=== PATIENT | female | born 1990 | race Caucasian/White ===

== ENCOUNTER 2017-01-31 05:02 | Inpatient (IN) | payer OTHER ==
[2017-01-31 05:39] LABS: BILIRUBIN NEGATIVE (NEGATIVE); BLOOD 1+ Ery/uL (NEGATIVE); CLARITY CLEAR (CLEAR); COLOR YELLOW (YELLOW); GLUCOSE (U) NORMAL (NORMAL); KETONE (U) NEGATIVE (NEGATIVE); LEUKOCYTES NEGATIVE Leu/uL (NEGATIVE); NITRITE NEGATIVE (NEGATIVE); PROTEIN NEGATIVE (NEGATIVE); UROBILINOGEN 0.2 mg/dL (0.2-1.0)
[2017-01-31 05:43] LABS: BACTERIA 1+
[2017-01-31 06:19] LABS: BILIRUBIN NEGATIVE (NEGATIVE); BLOOD 1+ Ery/uL (NEGATIVE); CLARITY CLEAR (CLEAR); COLOR YELLOW (YELLOW); GLUCOSE (U) NORMAL (NORMAL); KETONE (U) NEGATIVE (NEGATIVE); LEUKOCYTES 2+ Leu/uL (NEGATIVE); NITRITE NEGATIVE (NEGATIVE); PROTEIN NEGATIVE (NEGATIVE); UROBILINOGEN 0.2 mg/dL (0.2-1.0)
[2017-01-31 06:27] LABS: BACTERIA TRACE; MUCOUS TRACE
[2017-01-31 06:28] LABS: RENAL EPITHELIAL CELLS RARE
[2017-01-31 06:38] LABS: HCT 39.1 % (37.0-47.0); HGB 13.8 g/dl (12.5-16.0); MCH 30.7 pg (25.0-31.0); MCHC 35.3 g/dL (32.0-36.0); MCV 87.1 fL (78.0-100.0); MPV 11.1 fL (6.0-9.5); RBC 4.49 M/uL (4.20-5.40); RDW 13.6 % (11.5-14.0); WBC 10.8 K/uL (4.0-10.5)
[2017-01-31 13:56] LABS: BILIRUBIN NEGATIVE (NEGATIVE); BLOOD TRACE-INTACT Ery/uL (NEGATIVE); CLARITY CLEAR (CLEAR); COLOR YELLOW (YELLOW); GLUCOSE (U) NORMAL (NORMAL); KETONE (U) NEGATIVE (NEGATIVE); LEUKOCYTES NEGATIVE Leu/uL (NEGATIVE); NITRITE NEGATIVE (NEGATIVE); PROTEIN NEGATIVE (NEGATIVE); SPECIFIC GRAVITY >=1.030 (1.001-1.030); UROBILINOGEN 0.2 mg/dL (0.2-1.0); pH 7.5 (5.0-9.0)
[2017-02-01 05:51] LABS: HCT 28.1 % (37.0-47.0); HGB 9.6 g/dl (12.5-16.0); MCH 30.6 pg (25.0-31.0); MCHC 34.2 g/dL (32.0-36.0); MCV 89.5 fL (78.0-100.0); MPV 10.3 fL (6.0-9.5); RBC 3.14 M/uL (4.20-5.40); WBC 11.2 K/uL (4.0-10.5)
== END 2017-02-02 12:00 | disposition home or self-care (01) | DRG 766 ==
LOC: FOD 05:02 → FOB 05:02 → FOD 10:27 → FOB 10:28
PROVIDERS: ADMIT Obstetrics & Gynecology
PROC: 10D00Z1 Extraction of Products of Conception, Low, Open Approach (ICD-10-PCS; principal; 2017-01-31 12:27)
PROC: 3E0234Z Introduction of Serum, Toxoid and Vaccine into Muscle, Percutaneous Approach (ICD-10-PCS; 2017-02-01)
DX: O41.03X0 Oligohydramnios, third trimester, not applicable or unspecified (principal); E66.9 Obesity, unspecified; O36.0930 Maternal care for other rhesus isoimmunization, third trimester, not applicable or unspecified; Z37.0 Single live birth; Z3A.37 37 weeks gestation of pregnancy; O34.211 Maternal care for low transverse scar from previous cesarean delivery; N85.8 Other specified noninflammatory disorders of uterus; O99.214 Obesity complicating childbirth; Z68.31 Body mass index [BMI] 31.0-31.9, adult
CPT/HCPCS: 36415; 81001; 81003; 86850; 86900; 86901; 88307; J0456; J0690; J1170; J1885; J2405; J2790; J2916; P9612